=== PATIENT | female | born 1940 ===

== ENCOUNTER 2016-11-01 01:48 | Emergency (ER) | payer OTHER ==
[~2016-11-01] VITALS: Ht 162.6 cm; Wt 90.7 kg
[2016-11-01] MEDS ORDERED: ASPIRIN81 M4 PO (01:56)
[2016-11-01] MEDS ORDERED: GLUCOSAMINE1000 MG PO (01:57)
--- NOTE | 2016-11-01 02:13 | ED GENERAL ADULT ---
History of Present Illness General Chief Complaint: General Adult Stated Complaint: "PER SON HEART RACING HIGH BLOOD PRESSURE" Source: patient, family, old records Exam Limitations: no limitations Vital Signs & Intake/Output Vital Signs & Intake/Output Vital Signs Date Time Temp Pulse Resp B/P Pulse O2 O2 Flow FiO2 Ox Delivery Rate 11/01 0639 95.8 58 18 128/85 98 Room Air 11/01 0400 97.3 82 18 168/74 96 11/01 0203 98.4 81 18 180/87 100 Room Air Allergies Coded Allergies: No Known Allergies (11/01/16) Triage Note: TRIAGE: PATIENT TO ER STATES HEART RACING AND BODY SHAKY, CAN'T SLEEP. FAMILY TOOK BP AT HOME 192/90. REPORTS SYMPTOMS ONSET 0000. REPORTS YESTERDAY STABBING PAIN TO CHEST, NOT PERSISTANT, DENIES CURRENTLY. DENIES HX HTN. PATIENT'S SON (IBAN) TRANSLATING FOR PATIENT IN TRIAGE. Triage Nurses Notes Reviewed? yes HPI: Patient brought in by her son for evaluation of chest pain and palpitations. The chest pain started a few days ago and has been intermittent. The pain is sharp in nature and is located underneath her left breast. There are no aggravating or mitigating factors. When she gets the pain will last approximately 20 minutes before going when it's own. Tonight she was unable to go to sleep secondary to this pain as well as palpitations. The pain has been constant for the past 2 hours. There is no shortness of breath. There is no diaphoresis. There is no nausea or vomiting. The palpitations have resolved while coming into the emergency department. (JOEL NAJERA,AUTUMN Payton) Reconcile Medications Aspirin (Aspirin*) 81 MG TAB.CHEW 1 TAB PO DAILY HEART HEALTH (Reported) Glucosamine Sulfate 2KCL (Glucosamine) 1,000 MG TABLET 1 TAB PO DAILY JOINTS (Reported) Zolpidem Tartrate (Ambien) 5 MG TABLET 1 TAB PO QPMP PRN INSOMNIA (TAWNY NAJERA,JOSR) Past History Travel History Traveled to [place] past 21 day No Medical History Any Pertinent Medical History? 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 No (JOEL NAJERA,AUTUMN Payton) Review of Systems Review of Systems Constitutional: Reports: no symptoms. EENTM: Reports: no symptoms. Respiratory: Reports: no symptoms. Cardiovascular: Reports: see HPI, chest pain, palpitations. GI: Reports: no symptoms. Genitourinary: Reports: no symptoms. Musculoskeletal: Reports: no symptoms. Skin: Reports: no symptoms. Neurological/Psychological: Reports: no symptoms. Hematologic/Endocrine: Reports: no symptoms. Immunologic/Allergic: Reports: no symptoms. All Other Systems: Reviewed and Negative (JOEL NAJERA,AUTUMN Payton) Physical Exam Physical Exam General Appearance: well developed/nourished, alert, awake, anxious, mild distress Head: atraumatic, normal appearance Eyes: Bilateral: PERRL, EOMI. Ears, Nose, Throat: normal pharynx, normal ENT inspection, hearing grossly normal Neck: normal inspection, supple, full range of motion, NO JVD Respiratory: normal breath sounds, chest non-tender, no respiratory distress, lungs clear Cardiovascular: regular rate/rhythm, normal peripheral pulses Gastrointestinal: normal bowel sounds, soft, non-tender, no organomegaly Back: normal inspection Extremities: normal inspection, normal capillary refill, normal range of motion, no edema Neurologic/Psych: no motor/sensory deficits, awake, alert, oriented x 3, normal mood/affect Skin: intact, normal color, warm/dry Lymphatic: no anterior cervical germaine Core Measures ACS in differential dx? Yes ASA ordered for poss ACS? Yes-ordered CVA/TIA Diagnosis: No Severe Sepsis Present: No Septic Shock Present: No (JOEL NAJERA,AUTUMN Payton) Progress Differential Diagnoses I considered the following diagnoses in my evaluation of the patient: [AMI, ANGINA, ELECTROLYTE ABNORMALITY] Plan of Care: Orders Procedure Date/time Status TROPONIN LEVEL 11/01 0700 Complete EKG 11/01 0700 Active Telemetry/Snap Attacher 11/01 0218 Active TROPONIN LEVEL 11/01 0218 Complete COMPREHENSIVE METABOLIC PANEL 11/018 Complete CBC WITHOUT DIFFERENTIAL 11/01 217 Complete EKG 11/01 0152 Active Laboratory Tests 11/01/16 0715: Troponin I < 0.01 11/01/16 0306: Anion Gap 11, Estimated GFR > 60, BUN/Creatinine Ratio 25.0, Glucose 102 H, Calcium 9.4, Total Bilirubin 0.4, AST 21, ALT 21, Alkaline Phosphatase 66, Troponin I < 0.01, Total Protein 7.4, Albumin 4.2, Globulin 3.2, Albumin/ Globulin Ratio 1.3, CBC w Diff MAN DIFF ORDERED, RBC 4.36, MCV 90.9, MCH 30.6, RDW 13.8, MPV 9.6, Gran % 29.4 L, Lymphocytes % 57.9 H, Monocytes % 9.7 H, Eosinophils % 2.5, Basophils % 0.5, Absolute Granulocytes 1.7, Segmented Neutrophils 23 L, Absolute Lymphocytes 3.4, Lymphocytes 72 H, Monocytes 4, Absolute Monocytes 0.6, Eosinophils 1, Absolute Eosinophils 0.1, Absolute Basophils 0, Platelet Estimate ADEQUATE, Ovalocytes 1+, PUBS MCHC 33.7 11/01/2016 7:37:21 AM Patient signed out to me by Dr. Maldonado. Pending repeat EKG and troponin. Repeat troponin is negative. EKG is unchanged. Patient chest pain-free at discharge. Sinuses requesting a prescription for something to help her sleep at night as she is anxious and stays awake to 4 AM. Prescription given for Ambien. She will also follow up with primary care doctor that they received on an outpatient discharge list. (TAWNY NAJERA,JOSR) Diagnostic Imaging: Viewed by Me: Radiology Read. Discussed w/RAD: Radiology Read. CXR Impression: PATIENT: OJ YU PRESENT AGE: 76 PATIENT ACCOUNT NO: [id number] : 40 LOCATION: [facility] ORDERING PHYSICIAN: AUTUMN MALDONADO MD SERVICE DATE: 11/01/16 EXAM TYPE: RAD - XRY- PORTABLE CHEST XRAY EXAMINATION: XR PORTABLE CHEST CLINICAL INFORMATION: Chest pain COMPARISON: None. TECHNIQUE: Portable view of the chest was obtained. FINDINGS: The lungs are clear with no focal consolidation. No evidence of pneumothorax, pulmonary edema, or pleural effusions. Cardiac size is at the upper limits of normal. No acute osseous findings are seen. IMPRESSION: No acute cardiopulmonary findings. DICTATED BY: NIKHIL CARRENO MD DATE/TIME DICTATED:316 [employer] INTEGRATION ENGINEER:ZOË DATE/TIME TRANSCRIBED:11/01/16316 CONFIDENTIAL, DO NOT COPY WITHOUT APPROPRIATE AUTHORIZATION. <Electronically signed in Other Vendor System> SIGNED BY: NIKHIL CARRENO MD 11/01/16 0321 Initial ED EKG: NSR, nonspecific ST T wave chg Prior EKG: unchanged Rhythm Strip: normal sinus rhythm Hand-Off Endorsed To: JOSR HECTOR MD Endorsed Time: 0700 Pending: labs (JOEL NAJERA,AUTUMN Payton) Repeat EKG: unchanged (JOSR HECTOR MD) Departure Departure Condition: Stable Clinical Impression Primary Impression: Chest pain, unspecified Qualifiers: Chest pain type: other chest pain Qualified Code: R07.89 - Other chest pain Departure Forms: Customer Survey General Discharge Information (JOEL NAJERA,AUTUMN Payton) Departure Time of Disposition: 805 Disposition: HOME OR SELF CARE Additional Instructions: FOLLOW UP WITH YOUR PRIMARY CARE DOCTOR IN THE OFFICE. RETURN NEEDED. Prescriptions: Current Visit Scripts Zolpidem Tartrate (Ambien) 1 TAB PO QPMP PRN INSOMNIA #14 TAB (JOSR HECTOR MD) Critical Care Note Critical Care Note Critical Care Time: non-applicable (JOEL NAJERA,AUTUMN Payton)
[2016-11-01 03:18] LABS: ABSOLUTE BASOPHIL COUNT 0 /CUMM (0.0-0.2); ABSOLUTE EOSINOPHIL COUNT 0.1 /CUMM (0.0-0.7); ABSOLUTE GRANULOCYTE CT 1.7 /CUMM (1.4-6.5); ABSOLUTE LYMPH COUNT 3.4 /CUMM (1.2-3.4); ABSOLUTE MONOCYTE COUNT 0.6 /CUMM (0.10-0.60); BASOPHIL % 0.5 % (0.0-2.0); EOSINOPHIL % 2.5 % (0-5); GRANULOCYTE % 29.4 % (42.2-75.2); HEMATOCRIT 39.6 % (37-47); MEAN CORPUSCULAR HGB 30.6 PG (27.0-31.0); MEAN CORPUSCULAR HGB CONC 33.7 G/DL (33.0-37.0); MEAN CORPUSCULAR VOLUME 90.9 FL (81.0-99.0); MEAN PLATELET VOLUME 9.6 FL (7.4-10.4); PLATELET COUNT 282 /CUMM (130-400); RBC DISTRIBUTION WIDTH 13.8 % (11.5-14.5); RED BLOOD CELL CT 4.36 /CUMM (4.20-5.40); WHITE BLOOD CELL COUNT 5.8 /CUMM (4.8-10.8)
--- NOTE | 2016-11-01 03:21 | RADIOLOGY REPORT ---
EXAMINATION: XR PORTABLE CHEST CLINICAL INFORMATION: Chest pain COMPARISON: None. TECHNIQUE: Portable view of the chest was obtained. FINDINGS: The lungs are clear with no focal consolidation. No evidence of pneumothorax, pulmonary edema, or pleural effusions. Cardiac size is at the upper limits of normal. No acute osseous findings are seen. IMPRESSION: No acute cardiopulmonary findings.
[2016-11-01 06:39] VITALS: BP 128/85
[2016-11-01] MEDS ORDERED: AMBIEN5 M1 PO (08:11)
== END 2016-11-01 08:14 ==
LOC: EDBD 01:48 → ERH 01:48
PROVIDERS: Emergency Medicine
DX: R07.9 Chest pain, unspecified (principal)
CPT/HCPCS: 93005; 93010